=== PATIENT | female | born 1945 | race Caucasian/White ===

== ENCOUNTER → 2016-04-15 | Outpatient (CLI) | payer MEDICARE, BC ==
[~2016-04-15] MED LIST: ADVAIR 100/28 DISKU1 IH; ADVAIR 250/28 DISKUS IH; ADVAIR DISKUS 21 DSK IH; ALBUTEROL2.5 MG/3 M IH; AMITRIPTYLINE H25 M1 PO; AMITRIPTYLINE H25 M2 PO; ASCORBIC ACID500 M3 PO; ASPIRIN E.C. 8181 M1 PO; ATROVENT HFA IH; ATROVENT I0.2 MG/1 M IH; B COMPLETE1 EACH PO; B COMPLEX1 TA2 PO; CELEXA20 MG PO; CETIRIZINE HCL10 MG PO; CHILDREN'S ASPI81 M1 PO; CIPRO250 M1 PO; CITALOPRAM20 MG PO; CLARITIN 1010 MG/TAB PO; CYCLOBENZ5 MG PO; CYCLOBENZAPRINE10 M1 PO; DURAGESIC25 MCG/PAT TD; ERYTHROMYCIN5 MG/GM OU; FENTANYL12.5 MCG/H TD; FLEXERIL10 MG PO; FLOMAX0.4 MG PO; LEVOTHYROXIN0.075 MG PO; LISINOPRIL10 MG PO; MACRODANTIN100 M1 PO; MIRALAX 17GM PK1 PKT PO; MUCINEX 60600 MG/TA1 PO; MULTIPLE VITAMI1 CAP PO; NATURE'S BLEND400 I1 PO; NORCO 325 MG-51 TAB PO; OMEGA-3 FISH1200 MG PO; PATADAY 2.5 ML2.5 ML OU; PATANOL OPHTHALM5 ML OD; PREDNISONE10 MG PO; PRILOSEC 20MG20 MG PO; Patient's Own Medication PO; SENORMIN50 MG PO; SIMVASTATIN20 MG PO; TESSALON P100 MG/CAP PO; TESSALON PERLE100 M1 PO; TESSALON PERLE100 MG PO; TESSALON PERLE200 MG PO; VITAMIN E 400 U4001 PO; VITAMIN E100 UNI2; VOLTAREN1% TP; XOPENEX 1.1.25 MG/3 IH; ZESTRIL 5MG5 MG PO; ZOCOR20 MG PO; ZOFRAN4 M2 PO; [UNRECOGNIZED DRUG - OTHER] PO
== END ==
LOC: RAD 09:08
DX: Z13.820 Encounter for screening for osteoporosis (principal); M85.832 Other specified disorders of bone density and structure, left forearm

== ENCOUNTER → 2016-06-24 | Outpatient (CLI) | payer MEDICARE, BC ==
[2016-06-24 12:15] VITALS: BP 131/71
== END ==
LOC: AMSURD 12:00
DX: R00.1 Bradycardia, unspecified (principal)

== ENCOUNTER → 2016-07-06 | Outpatient (CLI) | payer MEDICARE, BC ==
[2016-06-24 12:15] VITALS: BP 131/71
== END ==
LOC: LAB 11:56
DX: R30.0 Dysuria (principal)

== ENCOUNTER → 2016-07-15 | Outpatient (CLI) | payer MEDICARE, BC ==
[2016-07-15 11:08] VITALS: BP 136/78
== END ==
LOC: AMSURD 10:34
DX: R00.1 Bradycardia, unspecified (principal); R53.83 Other fatigue

== ENCOUNTER → 2016-10-28 | Outpatient (CLI) | payer MEDICARE, BC ==
[2016-07-15 11:08] VITALS: BP 136/78
== END ==
LOC: RAD 12:00
DX: R00.2 Palpitations (principal)

== ENCOUNTER → 2017-02-23 | Outpatient (CLI) | payer MEDICARE, BC ==
[2016-07-15 11:08] VITALS: BP 136/78
[2017-02-23 10:09] LABS: ALBUMIN 4.2 g/dL (3.5-5.0); BUN/CREATININE RATIO 22.4 (6.0-26.0); CALCIUM 9.6 mg/dL (8.4-10.2); POTASSIUM 4.1 mmol/L (3.6-5.0); TOTAL BILIRUBIN 0.8 mg/dL (0.2-1.3); TOTAL PROTEIN 7.1 g/dL (6.3-8.2)
== END ==
LOC: LAB 09:19
PROVIDERS: Family Medicine
DX: I10 Essential (primary) hypertension (principal); E78.2 Mixed hyperlipidemia; M62.838 Other muscle spasm; E03.8 Other specified hypothyroidism; R20.2 Paresthesia of skin

== ENCOUNTER → 2017-05-04 | Outpatient (CLI) | payer MEDICARE, BC ==
[2016-07-15 11:08] VITALS: BP 136/78
== END ==
LOC: LAB 09:14 → RAD 09:14
DX: K59.01 Slow transit constipation (principal); E03.8 Other specified hypothyroidism

== ENCOUNTER → 2018-04-04 | Outpatient (CLI) | payer MEDICARE, BC ==
[2016-07-15 11:08] VITALS: BP 136/78
[2018-04-04 10:55] LABS: CALCIUM 9.5 mg/dL (8.4-10.2); POTASSIUM 3.9 mmol/L (3.6-5.0)
== END ==
LOC: LAB 10:33
PROVIDERS: Nurse Practitioner
DX: R53.83 Other fatigue (principal)

== ENCOUNTER → 2018-08-10 | Outpatient (CLI) | payer MEDICARE, BC ==
[2016-07-15 11:08] VITALS: BP 136/78
[2018-08-10 11:22] LABS: ALBUMIN 4.4 g/dL (3.4-4.8); CALCIUM 10.6 mg/dL (8.4-10.2); POTASSIUM 3.9 mmol/L (3.5-5.1); TOTAL BILIRUBIN 0.5 mg/dL (0.2-1.2); TOTAL PROTEIN 7.3 g/dL (6.2-8.1)
== END ==
LOC: LAB 10:45
PROVIDERS: Family Medicine
DX: E78.2 Mixed hyperlipidemia (principal); I10 Essential (primary) hypertension

== ENCOUNTER → 2018-08-23 | Outpatient (CLI) | payer MEDICARE, BC ==
[2016-07-15 11:08] VITALS: BP 136/78
== END ==
LOC: LAB 15:50
DX: N39.0 Urinary tract infection, site not specified (principal)

== ENCOUNTER → 2018-09-27 | Outpatient (CLI) | payer MEDICARE, BC ==
[2016-07-15 11:08] VITALS: BP 136/78
[2018-09-27 16:22] LABS: PH-URINE 6.5 (5.0 - 8.0); URINE APPEARANCE HAZY; URINE COLOR YELLOW; URINE GLUCOSE NEGATIVE (NEGATIVE); URINE KETONE 2+ (NEGATIVE); URINE PROTEIN(semi-quant) TRACE mg/dL (NEGATIVE)
[2018-09-27 16:23] LABS: URINE BILIRUBIN NEGATIVE (NEGATIVE); URINE BLOOD NEGATIVE (NEGATIVE); URINE LEUKOCYTE ESTERASE 1+ (NEGATIVE); URINE MUCUS PRESENT (NOT PRESENT); URINE NITRATE NEGATIVE (NEGATIVE); URINE UROBILINOGEN NORMAL (NORMAL)
== END ==
LOC: LAB 15:18
PROVIDERS: Family Medicine
DX: N39.0 Urinary tract infection, site not specified (principal); E03.8 Other specified hypothyroidism

== ENCOUNTER 2018-12-28 10:00 | Outpatient (RCR) | payer MEDICARE, BC ==
[2016-07-15 11:08] VITALS: BP 136/78
== END 2018-12-28 10:30 | disposition home or self-care (01) ==
LOC: PT 10:00
DX: M54.9 Dorsalgia, unspecified (principal)

== ENCOUNTER → 2019-01-09 | Outpatient (CLI) | payer MEDICARE, BC ==
[2016-07-15 11:08] VITALS: BP 136/78
== END ==
LOC: LAB 09:58
DX: N30.01 Acute cystitis with hematuria (principal)

== ENCOUNTER → 2019-02-02 | Outpatient (CLI) | payer MEDICARE, BC ==
[2016-07-15 11:08] VITALS: BP 136/78
[2019-02-02 12:24] LABS: ALBUMIN 4.3 g/dL (3.4-4.8)
[2019-02-02 12:26] LABS: TOTAL PROTEIN 7.2 g/dL (6.2-8.1)
[2019-02-02 12:28] LABS: TOTAL BILIRUBIN 0.6 mg/dL (0.2-1.2)
[2019-02-02 12:32] LABS: DIRECT BILIRUBIN 0.2 mg/dL (0.0-0.5)
== END ==
LOC: LAB 11:39
PROVIDERS: Family Medicine
DX: E78.2 Mixed hyperlipidemia (principal)

== ENCOUNTER 2019-03-14 02:50 | Emergency (ER) | payer MEDICARE, BC ==
[~2019-03-14] VITALS: Ht 167.6 cm; Wt 108.6 kg
[2019-03-14] MEDS ORDERED: ATENOLOL25 MG PO (03:11)
[2019-03-14] MEDS ORDERED: MYCELEX10 MG/TAB PO (03:12)
[2019-03-14] MEDS ORDERED: ZOCOR40 M1 PO (03:13)
[2019-03-14] MEDS ORDERED: MOBIC15 M1 PO (03:14)
[2019-03-14] MEDS ORDERED: LEVOTHYROXINE125 MCG PO (03:15)
[2019-03-14 03:44] LABS: HEMATOCRIT 46.5 % (37.0-47.0); HEMOGLOBIN 14.9 g/dL (12.5-16.0); MEAN CELL VOLUME 100 fl (78-100); MEAN CORPUSCULAR HEMOGLOBIN 32 pg (27-31); MEAN CORPUSCULAR HGB CONC 32 g/dL (33-37); MEAN PLATELET VOLUME 9.8 fl (7.4-10.4); PLATELET COUNT 253 K/mm3 (130-400); RED BLOOD COUNT 4.65 M/mm3 (4.10-5.30); RED CELL DISTRIBUTION WIDTH 13.2 % (11.5-14.5); WHITE BLOOD COUNT 9.2 K/mm3 (4.8-10.8)
[2019-03-14 03:50] LABS: ALBUMIN 4.4 g/dL (3.4-4.8); SODIUM 142 mmol/L (136-145)
[2019-03-14 03:51] LABS: CALCIUM 9.4 mg/dL (8.3-10.5)
[2019-03-14 03:52] LABS: BAND 2 % (0-10); LYMPHOCYTE 3 % (20-51); MONOCYTE 3 % (3-10); NEUTROPHILS 92 % (42-75)
[2019-03-14 03:53] LABS: GLUCOSE 112 mg/dL (65-105); TOTAL PROTEIN 7.4 g/dL (6.2-8.1)
[2019-03-14 03:54] LABS: CARBON DIOXIDE 24 mmol/L (23-31); TOTAL BILIRUBIN 0.6 mg/dL (0.2-1.2)
[2019-03-14 03:58] LABS: AST-SGOT 21 U/L (5-34)
[2019-03-14 03:59] LABS: ALT/SGPT 16 U/L (0-55)
[2019-03-14 04:05] LABS: TROPONIN-I < 0.03 ng/mL (<0.030)
[2019-03-14 04:57] VITALS: BP 145/82
== END 2019-03-14 04:57 | disposition home or self-care (01) ==
LOC: ED 02:50
PROVIDERS: Nurse Practitioner Family
DX: K52.9 Noninfective gastroenteritis and colitis, unspecified (principal); I10 Essential (primary) hypertension
CPT/HCPCS: J1885; J2405; J7040

== ENCOUNTER → 2019-03-15 | Outpatient (CLI) | payer MEDICARE, BC ==
[2019-03-14 04:57] VITALS: BP 145/82
[~2019-03-15] MED LIST changes: +ATENOLOL25 MG PO; +LEVOTHYROXINE125 MCG PO; +MOBIC15 M1 PO; +MYCELEX10 MG/TAB PO; +ZOCOR40 M1 PO
[2019-03-15 16:37] LABS: URINE COLOR YELLOW
[2019-03-15 16:38] LABS: URINE APPEARANCE CLOUDY; URINE BILIRUBIN NEGATIVE (NEGATIVE); URINE BLOOD 50 ery/uL (NEGATIVE); URINE GLUCOSE NEGATIVE (NEGATIVE); URINE KETONE NEGATIVE (NEGATIVE); URINE LEUKOCYTE ESTERASE 2+ (NEGATIVE); URINE NITRATE POSITIVE (NEGATIVE); URINE PROTEIN(semi-quant) TRACE mg/dL (NEGATIVE); URINE UROBILINOGEN NORMAL (NORMAL); URINE WBC >50 /hpf (0-3)
== END ==
LOC: LAB 15:32
PROVIDERS: Family Medicine
DX: Z01.89 Encounter for other specified special examinations (principal)

== ENCOUNTER → 2019-03-26 | Outpatient (CLI) | payer MEDICARE, BC ==
[2019-03-14 04:57] VITALS: BP 145/82
[2019-03-26 09:07] LABS: EOS # 0.2 (0.04-0.40); EOS % 2.3 % (1.0-5.0); HEMATOCRIT 42.4 % (37.0-47.0); HEMOGLOBIN 13.5 g/dL (12.5-16.0); MEAN CELL VOLUME 100 fl (78-100); MEAN CORPUSCULAR HEMOGLOBIN 32 pg (27-31); MEAN CORPUSCULAR HGB CONC 32 g/dL (33-37); MONO # 0.7 (0.20-0.80); NEU # 4.7 (1.40-6.50); PLATELET COUNT 294 K/mm3 (130-400); RED BLOOD COUNT 4.25 M/mm3 (4.10-5.30); RED CELL DISTRIBUTION WIDTH 12.6 % (11.5-14.5); WHITE BLOOD COUNT 7.7 K/mm3 (4.8-10.8)
[2019-03-26 09:21] LABS: URINE APPEARANCE CLEAR; URINE BILIRUBIN NEGATIVE (NEGATIVE); URINE BLOOD NEGATIVE (NEGATIVE); URINE COLOR YELLOW; URINE GLUCOSE NEGATIVE (NEGATIVE); URINE KETONE NEGATIVE (NEGATIVE); URINE LEUKOCYTE ESTERASE TRACE (NEGATIVE); URINE NITRATE NEGATIVE (NEGATIVE); URINE PROTEIN(semi-quant) NEGATIVE (NEGATIVE); URINE UROBILINOGEN NORMAL (NORMAL)
[2019-03-29 12:56] LABS: ANA SCREEN with REFLEX Negative (Negative)
== END ==
LOC: LAB 08:43
PROVIDERS: Family Medicine
DX: K13.79 Other lesions of oral mucosa (principal); N30.01 Acute cystitis with hematuria; L43.9 Lichen planus, unspecified

== ENCOUNTER → 2019-04-04 | Outpatient (CLI) | payer MEDICARE, BC ==
[2019-03-14 04:57] VITALS: BP 145/82
[2019-04-04 15:31] LABS: URINE APPEARANCE CLOUDY; URINE COLOR YELLOW; URINE PROTEIN(semi-quant) 1+ mg/dL (NEGATIVE)
[2019-04-04 15:32] LABS: URINE BILIRUBIN NEGATIVE (NEGATIVE); URINE BLOOD 50 ery/uL (NEGATIVE); URINE GLUCOSE NEGATIVE (NEGATIVE); URINE KETONE NEGATIVE (NEGATIVE); URINE LEUKOCYTE ESTERASE 2+ (NEGATIVE); URINE NITRATE NEGATIVE (NEGATIVE); URINE UROBILINOGEN NORMAL (NORMAL)
== END ==
LOC: LAB 15:13
PROVIDERS: Family Medicine
DX: R39.15 Urgency of urination (principal); R30.0 Dysuria; R82.90 Unspecified abnormal findings in urine

== ENCOUNTER → 2019-09-13 | Outpatient (CLI) | payer MEDICARE, BC | LOC: LAB 10:32 | DX: N39.0 Urinary tract infection, site not specified (principal) ==

== ENCOUNTER 2019-11-08 12:11 | Emergency (ER) | payer MEDICARE, BC ==
[~2019-11-08] VITALS: Ht 167.6 cm; Wt 119.5 kg
[2019-11-08 13:15] LABS: EOS # 0.1 (0.04-0.40); EOS % 2.1 % (1.0-5.0); HEMATOCRIT 42.5 % (37.0-47.0); HEMOGLOBIN 13.6 g/dL (12.5-16.0); LYMPH# 1.3 (1.50-4.00); MEAN CELL VOLUME 99 fl (78-100); MEAN CORPUSCULAR HEMOGLOBIN 32 pg (27-31); MEAN CORPUSCULAR HGB CONC 32 g/dL (33-37); MEAN PLATELET VOLUME 9.8 fl (7.4-10.4); MONO # 0.5 (0.20-0.80); NEU # 3.3 (1.40-6.50); PLATELET COUNT 224 K/mm3 (130-400); RED BLOOD COUNT 4.31 M/mm3 (4.10-5.30); RED CELL DISTRIBUTION WIDTH 11.9 % (11.5-14.5); WHITE BLOOD COUNT 5.2 K/mm3 (4.8-10.8)
[2019-11-08 13:36] LABS: ALBUMIN 4.2 g/dL (3.4-4.8)
[2019-11-08 13:37] LABS: CALCIUM 9.7 mg/dL (8.3-10.5)
[2019-11-08 13:40] LABS: TOTAL BILIRUBIN 0.6 mg/dL (0.2-1.2)
[2019-11-08] MEDS ORDERED: MACRODANTIN50 MG/CA1 PO (15:08)
[2019-11-08] MEDS ORDERED: AMITRIPTYLINE H25 M2 PO (15:10)
[2019-11-08] MEDS ORDERED: ATROVENT I0.2 MG/1 M IH (15:12)
[2019-11-08] MEDS ORDERED: CRANBERRY 100 M1 SGL PO (15:14)
[2019-11-08] MEDS ORDERED: CALCIUM 500-VI1 EAC1 PO (15:15)
[2019-11-08] MEDS ORDERED: TOPROL XL 50MG50 MG PO (15:35)
[2019-11-08] MEDS ORDERED: BACLOFEN5 MG PO (15:38)
[2019-11-08 16:04] VITALS: BP 168/99
== END 2019-11-08 16:04 | disposition home or self-care (01) ==
LOC: ED 12:11
PROVIDERS: Nurse Practitioner Family
DX: G44.209 Tension-type headache, unspecified, not intractable (principal); I10 Essential (primary) hypertension
CPT/HCPCS: J1885

== ENCOUNTER → 2019-11-10 | Outpatient (CLI) | payer MEDICARE, BC ==
[2019-11-08 16:04] VITALS: BP 168/99
[~2019-11-10] MED LIST changes: +BACLOFEN5 MG PO; +CALCIUM 500-VI1 EAC1 PO; +CRANBERRY 100 M1 SGL PO; +MACRODANTIN50 MG/CA1 PO; +TOPROL XL 50MG50 MG PO
[2019-11-10 14:38] LABS: PH-URINE 5.5 (5.0 - 8.0); URINE APPEARANCE CLOUDY; URINE BILIRUBIN NEGATIVE (NEGATIVE); URINE BLOOD 250 ery/uL (NEGATIVE); URINE COLOR YELLOW; URINE GLUCOSE NEGATIVE (NEGATIVE); URINE KETONE NEGATIVE (NEGATIVE); URINE LEUKOCYTE ESTERASE 2+ (NEGATIVE); URINE NITRATE NEGATIVE (NEGATIVE); URINE PROTEIN(semi-quant) 1+ mg/dL (NEGATIVE); URINE UROBILINOGEN NORMAL (NORMAL); URINE WBC >50 /hpf (0-3)
== END ==
LOC: LAB 14:11
PROVIDERS: Nurse Practitioner
DX: R30.0 Dysuria (principal)

== ENCOUNTER → 2019-12-03 | Outpatient (CLI) | payer MEDICARE, BC ==
[2019-11-08 16:04] VITALS: BP 168/99
== END ==
LOC: RAD 15:07
DX: S22.060A Wedge compression fracture of T7-T8 vertebra, initial encounter for closed fracture (principal); M47.814 Spondylosis without myelopathy or radiculopathy, thoracic region

== ENCOUNTER → 2019-12-25 | Outpatient (CLI) | payer MEDICARE, BC ==
[2019-12-25 10:35] LABS: URINE APPEARANCE CLOUDY; URINE BILIRUBIN NEGATIVE (NEGATIVE); URINE BLOOD 50 ery/uL (NEGATIVE); URINE COLOR YELLOW; URINE GLUCOSE NEGATIVE (NEGATIVE); URINE KETONE NEGATIVE (NEGATIVE); URINE LEUKOCYTE ESTERASE 2+ (NEGATIVE); URINE NITRATE POSITIVE (NEGATIVE); URINE PROTEIN(semi-quant) TRACE mg/dL (NEGATIVE); URINE UROBILINOGEN NORMAL (NORMAL); URINE WBC >50 /hpf (0-3)
== END ==
LOC: LAB 09:33
DX: R82.998 Other abnormal findings in urine (principal)

== ENCOUNTER → 2020-01-03 | Outpatient (CLI) | payer MEDICARE, BC ==
[2020-01-03 11:56] LABS: URINE APPEARANCE HAZY; URINE BILIRUBIN NEGATIVE (NEGATIVE); URINE BLOOD TRACE (NEGATIVE); URINE COLOR YELLOW; URINE GLUCOSE NEGATIVE (NEGATIVE); URINE KETONE NEGATIVE (NEGATIVE); URINE LEUKOCYTE ESTERASE 1+ (NEGATIVE); URINE NITRATE NEGATIVE (NEGATIVE); URINE PROTEIN(semi-quant) TRACE mg/dL (NEGATIVE); URINE UROBILINOGEN NORMAL (NORMAL)
== END ==
LOC: LAB 10:22
PROVIDERS: Family Medicine
DX: N30.90 Cystitis, unspecified without hematuria (principal); R82.71 Bacteriuria

== ENCOUNTER → 2020-01-18 | Outpatient (CLI) | payer MEDICARE, BC ==
[~2020-01-18] VITALS: Ht 167.6 cm; Wt 110.5 kg
[~2020-01-18] MED LIST changes: +B COMPLEX1 EACH PO; +LUTEIN10 MG PO; -NATURE'S BLEND400 I1 PO; +VITAMIN D350 MCG PO
[2020-01-18 10:48] LABS: EOS # 0.2 (0.04-0.40); EOS % 2.1 % (1.0-5.0); HEMATOCRIT 43.8 % (37.0-47.0); HEMOGLOBIN 13.9 g/dL (12.5-16.0); MEAN CELL VOLUME 100 fl (78-100); MEAN CORPUSCULAR HEMOGLOBIN 32 pg (27-31); MEAN CORPUSCULAR HGB CONC 32 g/dL (33-37); MEAN PLATELET VOLUME 10.1 fl (7.4-10.4); MONO # 0.6 (0.20-0.80); NEU # 4.9 (1.40-6.50); PLATELET COUNT 259 K/mm3 (130-400); RED BLOOD COUNT 4.38 M/mm3 (4.10-5.30); RED CELL DISTRIBUTION WIDTH 12.8 % (11.5-14.5); WHITE BLOOD COUNT 7.8 K/mm3 (4.8-10.8)
[2020-01-18 10:55] LABS: ALBUMIN 4.4 g/dL (3.4-4.8); POTASSIUM 3.4 mmol/L (3.5-5.1)
[2020-01-18 10:56] LABS: CALCIUM 9.4 mg/dL (8.3-10.5)
[2020-01-18 10:57] LABS: TOTAL PROTEIN 7.7 g/dL (6.2-8.1)
[2020-01-18 10:59] LABS: TOTAL BILIRUBIN 0.6 mg/dL (0.2-1.2)
[2020-01-18 11:10] VITALS: BP 147/91
[2020-01-18 11:11] VITALS: BP 147/91
[2020-01-18 12:21] VITALS: BP 163/88
[2020-01-18 12:31] LABS: URINE APPEARANCE HAZY; URINE BILIRUBIN NEGATIVE (NEGATIVE); URINE COLOR YELLOW; URINE GLUCOSE NEGATIVE (NEGATIVE); URINE KETONE NEGATIVE (NEGATIVE); URINE PROTEIN(semi-quant) 2+ mg/dL (NEGATIVE); URINE UROBILINOGEN NORMAL (NORMAL)
[2020-01-18 12:32] LABS: URINE BLOOD TRACE (NEGATIVE); URINE LEUKOCYTE ESTERASE 2+ (NEGATIVE); URINE MUCUS PRESENT (NOT PRESENT); URINE NITRATE POSITIVE (NEGATIVE); URINE WBC >50 /hpf (0-3)
== END ==
LOC: AMSURD 10:10 → RAD 10:10
PROVIDERS: Family Medicine
DX: K58.9 Irritable bowel syndrome, unspecified (principal)
CPT/HCPCS: J7030

== ENCOUNTER → 2020-04-28 | Outpatient (CLI) | payer MEDICARE, BC ==
[2020-01-18 12:21] VITALS: BP 163/88
[2020-04-28 10:09] LABS: EOS # 0.2 (0.04-0.40); EOS % 2.9 % (1.0-5.0); HEMATOCRIT 44.5 % (37.0-47.0); HEMOGLOBIN 14.1 g/dL (12.5-16.0); LYMPH# 1.8 (1.50-4.00); MEAN CELL VOLUME 101 fl (78-100); MEAN CORPUSCULAR HEMOGLOBIN 32 pg (27-31); MEAN CORPUSCULAR HGB CONC 32 g/dL (33-37); MEAN PLATELET VOLUME 9.7 fl (7.4-10.4); MONO # 0.6 (0.20-0.80); PLATELET COUNT 259 K/mm3 (130-400); RED BLOOD COUNT 4.39 M/mm3 (4.10-5.30); RED CELL DISTRIBUTION WIDTH 12.8 % (11.5-14.5); WHITE BLOOD COUNT 6.7 K/mm3 (4.8-10.8)
[2020-04-28 10:17] LABS: ALBUMIN 4.3 g/dL (3.4-4.8); POTASSIUM 3.7 mmol/L (3.5-5.1); SODIUM 142 mmol/L (136-145)
[2020-04-28 10:19] LABS: CALCIUM 9.4 mg/dL (8.3-10.5)
[2020-04-28 10:20] LABS: GLUCOSE 99 mg/dL (65-105); TOTAL PROTEIN 7.1 g/dL (6.2-8.1)
[2020-04-28 10:21] LABS: CARBON DIOXIDE 27 mmol/L (23-31)
[2020-04-28 10:22] LABS: TOTAL BILIRUBIN 0.5 mg/dL (0.2-1.2)
[2020-04-28 10:25] LABS: AST-SGOT 27 U/L (5-34)
[2020-04-28 10:26] LABS: ALT/SGPT 24 U/L (0-55)
[2020-04-28 10:33] LABS: URINE APPEARANCE CLOUDY; URINE COLOR YELLOW
[2020-04-28 10:34] LABS: URINE BILIRUBIN NEGATIVE (NEGATIVE); URINE BLOOD TRACE (NEGATIVE); URINE GLUCOSE NEGATIVE (NEGATIVE); URINE KETONE NEGATIVE (NEGATIVE); URINE LEUKOCYTE ESTERASE 2+ (NEGATIVE); URINE NITRATE NEGATIVE (NEGATIVE); URINE PROTEIN(semi-quant) TRACE mg/dL (NEGATIVE); URINE UROBILINOGEN NORMAL (NORMAL); URINE WBC >50 /hpf (0-3)
[2020-04-28 11:13] LABS: ERYTHROCYTE SEDIMENTATION RATE 8 mm/hr (0-30)
== END ==
LOC: LAB 09:43
DX: M25.50 Pain in unspecified joint (principal); R76.8 Other specified abnormal immunological findings in serum

== ENCOUNTER → 2020-05-26 | Outpatient (CLI) | payer MEDICARE, BC ==
[2020-01-18 12:21] VITALS: BP 163/88
[2020-05-26 13:24] LABS: URINE APPEARANCE CLOUDY; URINE COLOR YELLOW
[2020-05-26 13:25] LABS: PH-URINE 6.5 (5.0 - 8.0); URINE BILIRUBIN NEGATIVE (NEGATIVE); URINE BLOOD NEGATIVE (NEGATIVE); URINE GLUCOSE NEGATIVE (NEGATIVE); URINE KETONE NEGATIVE (NEGATIVE); URINE LEUKOCYTE ESTERASE 2+ (NEGATIVE); URINE NITRATE NEGATIVE (NEGATIVE); URINE PROTEIN(semi-quant) TRACE mg/dL (NEGATIVE); URINE UROBILINOGEN NORMAL (NORMAL); URINE WBC 31-50 /hpf (0-3)
== END ==
LOC: LAB 10:29
DX: N39.0 Urinary tract infection, site not specified (principal)

== ENCOUNTER → 2020-07-30 | Outpatient (CLI) | payer MEDICARE, BC ==
[2020-01-18 12:21] VITALS: BP 163/88
== END ==
LOC: LAB 09:34
DX: E78.2 Mixed hyperlipidemia (principal); E55.9 Vitamin D deficiency, unspecified

== ENCOUNTER → 2020-09-25 | Outpatient (CLI) | payer MEDICARE, BC ==
[2020-09-25 10:14] LABS: BASO # 0.04 (0.02-0.10); EOS # 0.11 (0.04-0.40); EOS % 1.7 % (1.0-5.0); HEMATOCRIT 40.7 % (37.0-47.0); HEMOGLOBIN 13.1 g/dL (12.5-16.0); LYMPH# 1.52 (1.50-4.00); MEAN CELL VOLUME 103 fl (78-100); MEAN CORPUSCULAR HEMOGLOBIN 33 pg (27-31); MEAN CORPUSCULAR HGB CONC 32 g/dL (33-37); MEAN PLATELET VOLUME 9.7 fl (7.4-10.4); MONO # 0.64 (0.20-0.80); NEU # 4.05 (1.40-6.50); PLATELET COUNT 257 K/mm3 (130-400); RED BLOOD COUNT 3.97 M/mm3 (4.10-5.30); WHITE BLOOD COUNT 6.4 K/mm3 (4.8-10.8)
[2020-09-25 10:20] LABS: ALBUMIN 4.2 g/dL (3.4-4.8)
[2020-09-25 10:21] LABS: POTASSIUM 4.3 mmol/L (3.5-5.1)
[2020-09-25 10:22] LABS: CALCIUM 9.6 mg/dL (8.3-10.5)
[2020-09-25 10:23] LABS: TOTAL PROTEIN 7.1 g/dL (6.2-8.1)
[2020-09-25 10:25] LABS: TOTAL BILIRUBIN 0.6 mg/dL (0.2-1.2)
== END ==
LOC: LAB 10:00
DX: Z79.899 Other long term (current) drug therapy (principal)

== ENCOUNTER → 2020-10-27 | Outpatient (CLI) | payer MEDICARE, BC ==
[2020-10-27 09:44] LABS: BASO # 0.04 (0.02-0.10); EOS # 0.15 (0.04-0.40); EOS % 1.5 % (1.0-5.0); HEMOGLOBIN 12.6 g/dL (12.5-16.0); LYMPH# 1.78 (1.50-4.00); MEAN CELL VOLUME 104 fl (78-100); MEAN CORPUSCULAR HEMOGLOBIN 33 pg (27-31); MEAN CORPUSCULAR HGB CONC 32 g/dL (33-37); MEAN PLATELET VOLUME 9.7 fl (7.4-10.4); MONO # 0.74 (0.20-0.80); NEU # 6.97 (1.40-6.50); PLATELET COUNT 233 K/mm3 (130-400); RED BLOOD COUNT 3.83 M/mm3 (4.10-5.30); WHITE BLOOD COUNT 9.7 K/mm3 (4.8-10.8)
[2020-10-27 09:54] LABS: ALBUMIN 3.9 g/dL (3.4-4.8); POTASSIUM 3.7 mmol/L (3.5-5.1)
[2020-10-27 09:57] LABS: TOTAL PROTEIN 6.3 g/dL (6.2-8.1)
[2020-10-27 09:58] LABS: TOTAL BILIRUBIN 0.4 mg/dL (0.2-1.2)
== END ==
LOC: LAB 09:29
DX: Z79.899 Other long term (current) drug therapy (principal)

== ENCOUNTER → 2020-10-30 | Outpatient (CLI) | payer MEDICARE, BC ==
[2020-10-30 10:32] LABS: URINE APPEARANCE CLOUDY; URINE BILIRUBIN NEGATIVE (NEGATIVE); URINE BLOOD 50 ery/uL (NEGATIVE); URINE COLOR YELLOW; URINE GLUCOSE NEGATIVE (NEGATIVE); URINE KETONE NEGATIVE (NEGATIVE); URINE LEUKOCYTE ESTERASE 2+ (NEGATIVE); URINE NITRATE POSITIVE (NEGATIVE); URINE PROTEIN(semi-quant) 1+ mg/dL (NEGATIVE); URINE UROBILINOGEN NORMAL (NORMAL); URINE WBC >50 /hpf (0-3)
[2020-10-30 23:23] LABS: FOLATE (FOLIC ACID) 16.3 ng/mL (2.0-20.0)
== END ==
LOC: LAB 10:07
PROVIDERS: Family Medicine
DX: D72.829 Elevated white blood cell count, unspecified (principal); E55.9 Vitamin D deficiency, unspecified; N39.0 Urinary tract infection, site not specified; D75.89 Other specified diseases of blood and blood-forming organs

== ENCOUNTER → 2020-11-19 | Outpatient (CLI) | payer MEDICARE, BC | LOC: LAB 08:47 | DX: N39.0 Urinary tract infection, site not specified (principal); E55.9 Vitamin D deficiency, unspecified ==

== ENCOUNTER → 2020-12-01 | Outpatient (CLI) | payer MEDICARE, BC ==
[2020-12-01 11:29] LABS: ALBUMIN 3.9 g/dL (3.4-4.8); POTASSIUM 3.5 mmol/L (3.5-5.1)
[2020-12-01 11:30] LABS: CALCIUM 10.2 mg/dL (8.3-10.5)
[2020-12-01 11:31] LABS: BASO # 0.02 (0.02-0.10); EOS # 0.18 (0.04-0.40); EOS % 2.8 % (1.0-5.0); HEMATOCRIT 39.2 % (37.0-47.0); HEMOGLOBIN 13.2 g/dL (12.5-16.0); LYMPH# 1.38 (1.50-4.00); MEAN CELL VOLUME 89 fl (78-100); MEAN CORPUSCULAR HEMOGLOBIN 30 pg (27-31); MEAN CORPUSCULAR HGB CONC 34 g/dL (33-37); MEAN PLATELET VOLUME 9.2 fl (7.4-10.4); MONO # 0.88 (0.20-0.80); NEU # 4.01 (1.40-6.50); PLATELET COUNT 220 K/mm3 (130-400); RED BLOOD COUNT 4.42 M/mm3 (4.10-5.30); RED CELL DISTRIBUTION WIDTH 12.3 % (11.5-14.5); WHITE BLOOD COUNT 6.5 K/mm3 (4.8-10.8)
[2020-12-01 11:32] LABS: TOTAL PROTEIN 6.5 g/dL (6.2-8.1)
[2020-12-01 11:33] LABS: TOTAL BILIRUBIN 0.5 mg/dL (0.2-1.2)
== END ==
LOC: LAB 10:09
DX: Z79.899 Other long term (current) drug therapy (principal)

== ENCOUNTER → 2020-12-26 | Outpatient (CLI) | payer MEDICARE, BC ==
[2020-12-26 09:27] LABS: BASO # 0.05 K/mm3 (0.02-0.10); EOS # 0.27 K/mm3 (0.04-0.40); EOS % 4.8 % (1.0-5.0); HEMOGLOBIN 13.3 g/dL (12.5-16.0); LYMPH# 1.27 K/mm3 (1.50-4.00); MEAN CELL VOLUME 102 fl (78-100); MEAN CORPUSCULAR HEMOGLOBIN 33 pg (27-31); MEAN CORPUSCULAR HGB CONC 32 g/dL (33-37); MEAN PLATELET VOLUME 9.2 fl (7.4-10.4); MONO # 0.53 K/mm3 (0.20-0.80); NEU # 3.56 K/mm3 (1.40-6.50); PLATELET COUNT 247 K/mm3 (130-400); RED BLOOD COUNT 4.01 M/mm3 (4.10-5.30); RED CELL DISTRIBUTION WIDTH 12.7 % (11.5-14.5); WHITE BLOOD COUNT 5.7 K/mm3 (4.8-10.8)
[2020-12-26 09:39] LABS: ALBUMIN 4.1 g/dL (3.4-4.8); POTASSIUM 4.1 mmol/L (3.5-5.1)
[2020-12-26 09:40] LABS: CALCIUM 10.3 mg/dL (8.3-10.5)
[2020-12-26 09:42] LABS: TOTAL PROTEIN 6.8 g/dL (6.2-8.1)
[2020-12-26 09:43] LABS: TOTAL BILIRUBIN 0.4 mg/dL (0.2-1.2)
[2020-12-26 10:02] LABS: URINE APPEARANCE CLOUDY; URINE BILIRUBIN NEGATIVE (NEGATIVE); URINE BLOOD 250 ery/uL (NEGATIVE); URINE COLOR YELLOW; URINE GLUCOSE NEGATIVE (NEGATIVE); URINE KETONE NEGATIVE (NEGATIVE); URINE LEUKOCYTE ESTERASE 2+ (NEGATIVE); URINE NITRATE NEGATIVE (NEGATIVE); URINE PROTEIN(semi-quant) 2+ mg/dL (NEGATIVE); URINE UROBILINOGEN NORMAL (NORMAL); URINE WBC >50 /hpf (0-3)
== END ==
LOC: LAB 09:08
PROVIDERS: Family Medicine
DX: N39.0 Urinary tract infection, site not specified (principal); Z79.899 Other long term (current) drug therapy

== ENCOUNTER → 2021-01-06 | Outpatient (CLI) | payer MEDICARE, BC ==
[2021-01-06 11:23] LABS: PH-URINE 5.5 (5.0 - 8.0); URINE APPEARANCE CLOUDY; URINE COLOR YELLOW; URINE PROTEIN(semi-quant) 1+ mg/dL (NEGATIVE)
[2021-01-06 11:24] LABS: URINE BILIRUBIN NEGATIVE (NEGATIVE); URINE BLOOD 50 ery/uL (NEGATIVE); URINE GLUCOSE NEGATIVE (NEGATIVE); URINE KETONE NEGATIVE (NEGATIVE); URINE LEUKOCYTE ESTERASE 2+ (NEGATIVE); URINE NITRATE NEGATIVE (NEGATIVE); URINE UROBILINOGEN NORMAL (NORMAL); URINE WBC >50 /hpf (0-3)
== END ==
LOC: LAB 08:54
PROVIDERS: Family Medicine
DX: N39.0 Urinary tract infection, site not specified (principal)

== ENCOUNTER → 2021-01-26 | Outpatient (CLI) | payer MEDICARE, BC ==
[2021-01-26 12:50] LABS: BASO # 0.03 K/mm3 (0.02-0.10); EOS # 0.06 K/mm3 (0.04-0.40); EOS % 0.7 % (1.0-5.0); HEMATOCRIT 41.6 % (37.0-47.0); HEMOGLOBIN 13.3 g/dL (12.5-16.0); LYMPH# 1.03 K/mm3 (1.50-4.00); MEAN CELL VOLUME 103 fl (78-100); MEAN CORPUSCULAR HEMOGLOBIN 33 pg (27-31); MEAN CORPUSCULAR HGB CONC 32 g/dL (33-37); MEAN PLATELET VOLUME 9.1 fl (7.4-10.4); MONO # 0.57 K/mm3 (0.20-0.80); NEU # 6.73 K/mm3 (1.40-6.50); PLATELET COUNT 323 K/mm3 (130-400); RED BLOOD COUNT 4.04 M/mm3 (4.10-5.30); RED CELL DISTRIBUTION WIDTH 12.9 % (11.5-14.5); WHITE BLOOD COUNT 8.4 K/mm3 (4.8-10.8)
[2021-01-26 12:54] LABS: ALBUMIN 4.2 g/dL (3.4-4.8)
[2021-01-26 12:55] LABS: POTASSIUM 4.1 mmol/L (3.5-5.1)
[2021-01-26 12:57] LABS: TOTAL PROTEIN 7.2 g/dL (6.2-8.1)
[2021-01-26 12:59] LABS: TOTAL BILIRUBIN 0.5 mg/dL (0.2-1.2)
== END ==
LOC: LAB 12:33
DX: Z79.899 Other long term (current) drug therapy (principal)

== ENCOUNTER → 2021-02-26 | Outpatient (CLI) | payer MEDICARE, BC ==
[2021-02-26 09:39] LABS: BASO # 0.02 K/mm3 (0.02-0.10); EOS # 0.29 K/mm3 (0.04-0.40); EOS % 3.7 % (1.0-5.0); HEMATOCRIT 38.5 % (37.0-47.0); HEMOGLOBIN 12.4 g/dL (12.5-16.0); LYMPH# 0.73 K/mm3 (1.50-4.00); MEAN CELL VOLUME 107 fl (78-100); MEAN CORPUSCULAR HEMOGLOBIN 34 pg (27-31); MEAN CORPUSCULAR HGB CONC 32 g/dL (33-37); MEAN PLATELET VOLUME 9.2 fl (7.4-10.4); MONO # 0.37 K/mm3 (0.20-0.80); NEU # 6.36 K/mm3 (1.40-6.50); PLATELET COUNT 191 K/mm3 (130-400); RED CELL DISTRIBUTION WIDTH 14.5 % (11.5-14.5); WHITE BLOOD COUNT 7.8 K/mm3 (4.8-10.8)
[2021-02-26 09:48] LABS: ALBUMIN 4.3 g/dL (3.4-4.8)
[2021-02-26 09:49] LABS: POTASSIUM 3.9 mmol/L (3.5-5.1)
[2021-02-26 09:50] LABS: CALCIUM 9.8 mg/dL (8.3-10.5)
[2021-02-26 09:53] LABS: TOTAL BILIRUBIN 0.5 mg/dL (0.2-1.2)
== END ==
LOC: LAB 09:24
DX: Z79.899 Other long term (current) drug therapy (principal)

== ENCOUNTER → 2021-03-30 | Outpatient (CLI) | payer MEDICARE, BC ==
[2021-03-30 10:56] LABS: ALBUMIN 4.4 g/dL (3.4-4.8)
[2021-03-30 10:57] LABS: CALCIUM 10.2 mg/dL (8.3-10.5)
[2021-03-30 10:58] LABS: TOTAL PROTEIN 7.5 g/dL (6.2-8.1)
[2021-03-30 11:00] LABS: TOTAL BILIRUBIN 0.5 mg/dL (0.2-1.2)
[2021-03-30 11:35] LABS: URINE APPEARANCE CLOUDY; URINE COLOR YELLOW
[2021-03-30 11:36] LABS: URINE BILIRUBIN NEGATIVE (NEGATIVE); URINE BLOOD TRACE (NEGATIVE); URINE GLUCOSE NEGATIVE (NEGATIVE); URINE KETONE NEGATIVE (NEGATIVE); URINE LEUKOCYTE ESTERASE 1+ (NEGATIVE); URINE MUCUS PRESENT (NOT PRESENT); URINE NITRATE POSITIVE (NEGATIVE); URINE PROTEIN(semi-quant) TRACE (NEGATIVE); URINE UROBILINOGEN NORMAL (NORMAL)
[2021-03-30 11:39] LABS: BASO # 0.04 K/mm3 (0.02-0.10); EOS # 0.11 K/mm3 (0.04-0.40); EOS % 0.9 % (1.0-5.0); HEMATOCRIT 43.4 % (37.0-47.0); HEMOGLOBIN 13.8 g/dL (12.5-16.0); LYMPH# 1.25 K/mm3 (1.50-4.00); MEAN CELL VOLUME 107 fl (78-100); MEAN CORPUSCULAR HEMOGLOBIN 34 pg (27-31); MEAN CORPUSCULAR HGB CONC 32 g/dL (33-37); MEAN PLATELET VOLUME 10.9 fl (7.4-10.4); MONO # 0.82 K/mm3 (0.20-0.80); NEU # 9.46 K/mm3 (1.40-6.50); PLATELET COUNT 249 K/mm3 (130-400); RED BLOOD COUNT 4.06 M/mm3 (4.10-5.30); RED CELL DISTRIBUTION WIDTH 14.2 % (11.5-14.5); WHITE BLOOD COUNT 11.7 K/mm3 (4.8-10.8)
== END ==
LOC: LAB 10:22
DX: Z79.899 Other long term (current) drug therapy (principal)

== ENCOUNTER → 2021-04-28 | Outpatient (CLI) | payer MEDICARE, BC ==
[2021-04-28 10:48] LABS: BASO # 0.07 K/mm3 (0.02-0.10); EOS # 0.14 K/mm3 (0.04-0.40); EOS % 1.8 % (1.0-5.0); HEMATOCRIT 41.4 % (37.0-47.0); HEMOGLOBIN 13.8 g/dL (12.5-16.0); LYMPH# 0.89 K/mm3 (1.50-4.00); MEAN CELL VOLUME 105 fl (78-100); MEAN CORPUSCULAR HEMOGLOBIN 35 pg (27-31); MEAN CORPUSCULAR HGB CONC 33 g/dL (33-37); MEAN PLATELET VOLUME 9.3 fl (7.4-10.4); NEU # 5.66 K/mm3 (1.40-6.50); PLATELET COUNT 300 K/mm3 (130-400); RED BLOOD COUNT 3.96 M/mm3 (4.10-5.30); RED CELL DISTRIBUTION WIDTH 14.4 % (11.5-14.5); WHITE BLOOD COUNT 7.7 K/mm3 (4.8-10.8)
[2021-04-28 10:53] LABS: ALBUMIN 4.2 g/dL (3.4-4.8); POTASSIUM 3.6 mmol/L (3.5-5.1)
[2021-04-28 10:54] LABS: CALCIUM 9.9 mg/dL (8.3-10.5)
[2021-04-28 10:56] LABS: TOTAL PROTEIN 6.9 g/dL (6.2-8.1)
[2021-04-28 10:57] LABS: TOTAL BILIRUBIN 0.4 mg/dL (0.2-1.2)
[2021-04-28 13:02] LABS: URINE APPEARANCE CLOUDY; URINE BILIRUBIN NEGATIVE (NEGATIVE); URINE BLOOD 50 ery/uL (NEGATIVE); URINE COLOR YELLOW; URINE GLUCOSE NEGATIVE (NEGATIVE); URINE KETONE NEGATIVE (NEGATIVE); URINE LEUKOCYTE ESTERASE 2+ (NEGATIVE); URINE NITRATE POSITIVE (NEGATIVE); URINE PROTEIN(semi-quant) 1+ (NEGATIVE); URINE UROBILINOGEN NORMAL (NORMAL)
[2021-04-28 13:03] LABS: URINE WBC >50 /hpf (0-3)
== END ==
LOC: LAB 09:59
PROVIDERS: Family Medicine
DX: N39.0 Urinary tract infection, site not specified (principal); Z79.899 Other long term (current) drug therapy

== ENCOUNTER → 2021-05-18 | Outpatient (CLI) | payer MEDICARE, BC ==
[2021-05-18 10:53] LABS: BASO # 0.03 K/mm3 (0.02-0.10); EOS # 0.07 K/mm3 (0.04-0.40); HEMATOCRIT 40.8 % (37.0-47.0); HEMOGLOBIN 13.3 g/dL (12.5-16.0); LYMPH# 0.77 K/mm3 (1.50-4.00); MEAN CELL VOLUME 105 fl (78-100); MEAN CORPUSCULAR HEMOGLOBIN 34 pg (27-31); MEAN CORPUSCULAR HGB CONC 33 g/dL (33-37); MEAN PLATELET VOLUME 9.5 fl (7.4-10.4); NEU # 5.43 K/mm3 (1.40-6.50); PLATELET COUNT 278 K/mm3 (130-400); RED BLOOD COUNT 3.87 M/mm3 (4.10-5.30); RED CELL DISTRIBUTION WIDTH 13.9 % (11.5-14.5); WHITE BLOOD COUNT 6.8 K/mm3 (4.8-10.8)
[2021-05-18 10:56] LABS: ALBUMIN 4.1 g/dL (3.4-4.8)
[2021-05-18 10:57] LABS: POTASSIUM 3.9 mmol/L (3.5-5.1)
[2021-05-18 10:58] LABS: CALCIUM 9.9 mg/dL (8.3-10.5)
[2021-05-18 10:59] LABS: TOTAL PROTEIN 6.9 g/dL (6.2-8.1)
[2021-05-18 11:01] LABS: TOTAL BILIRUBIN 0.5 mg/dL (0.2-1.2)
[2021-05-18 14:09] LABS: URINE APPEARANCE CLEAR; URINE BILIRUBIN NEGATIVE (NEGATIVE); URINE BLOOD 50 ery/uL (NEGATIVE); URINE COLOR YELLOW; URINE GLUCOSE NEGATIVE (NEGATIVE); URINE KETONE NEGATIVE (NEGATIVE); URINE LEUKOCYTE ESTERASE TRACE (NEGATIVE); URINE NITRATE NEGATIVE (NEGATIVE); URINE PROTEIN(semi-quant) TRACE (NEGATIVE); URINE UROBILINOGEN NORMAL (NORMAL)
[2021-05-18 14:10] LABS: URINE MUCUS PRESENT (NOT PRESENT)
== END ==
LOC: LAB 10:19
PROVIDERS: Family Medicine
DX: I10 Essential (primary) hypertension (principal); I26.99 Other pulmonary embolism without acute cor pulmonale; I48.0 Paroxysmal atrial fibrillation; N39.0 Urinary tract infection, site not specified

== ENCOUNTER → 2021-07-22 | Outpatient (CLI) | payer MEDICARE, BC ==
[2021-07-22 15:26] LABS: ALBUMIN 4.2 g/dL (3.4-4.8); BASO # 0.01 K/mm3 (0.02-0.10); EOS # 0.01 K/mm3 (0.04-0.40); EOS % 0.1 % (1.0-5.0); HEMATOCRIT 40.4 % (37.0-47.0); HEMOGLOBIN 13.1 g/dL (12.5-16.0); LYMPH# 0.97 K/mm3 (1.50-4.00); MEAN CELL VOLUME 103 fl (78-100); MEAN CORPUSCULAR HEMOGLOBIN 33 pg (27-31); MEAN CORPUSCULAR HGB CONC 32 g/dL (33-37); MEAN PLATELET VOLUME 9.7 fl (7.4-10.4); MONO # 0.46 K/mm3 (0.20-0.80); NEU # 6.65 K/mm3 (1.40-6.50); PLATELET COUNT 259 K/mm3 (130-400); RED BLOOD COUNT 3.93 M/mm3 (4.10-5.30); RED CELL DISTRIBUTION WIDTH 12.9 % (11.5-14.5); WHITE BLOOD COUNT 8.1 K/mm3 (4.8-10.8)
[2021-07-22 15:29] LABS: TOTAL PROTEIN 6.8 g/dL (6.2-8.1)
[2021-07-22 15:30] LABS: TOTAL BILIRUBIN 0.5 mg/dL (0.2-1.2)
== END ==
LOC: LAB 14:45
DX: Z79.899 Other long term (current) drug therapy (principal)

== ENCOUNTER → 2021-07-27 | Outpatient (CLI) | payer MEDICARE, BC ==
[2021-07-27 11:25] LABS: URINE APPEARANCE CLOUDY; URINE COLOR YELLOW; URINE PROTEIN(semi-quant) NEGATIVE (NEGATIVE)
[2021-07-27 11:26] LABS: URINE BILIRUBIN NEGATIVE (NEGATIVE); URINE BLOOD 50 ery/uL (NEGATIVE); URINE GLUCOSE NEGATIVE (NEGATIVE); URINE KETONE NEGATIVE (NEGATIVE); URINE LEUKOCYTE ESTERASE 2+ (NEGATIVE); URINE NITRATE POSITIVE (NEGATIVE); URINE UROBILINOGEN NORMAL (NORMAL); URINE WBC >50 /hpf (0-3)
== END ==
LOC: LAB 10:04
PROVIDERS: Family Medicine
DX: N39.0 Urinary tract infection, site not specified (principal)

== ENCOUNTER → 2021-08-11 | Outpatient (CLI) | payer MEDICARE, BC ==
[2021-08-11 11:38] LABS: PH-URINE 6.5 (5.0 - 8.0); URINE APPEARANCE CLEAR; URINE BILIRUBIN NEGATIVE (NEGATIVE); URINE BLOOD NEGATIVE (NEGATIVE); URINE COLOR YELLOW; URINE GLUCOSE NEGATIVE (NEGATIVE); URINE KETONE NEGATIVE (NEGATIVE); URINE LEUKOCYTE ESTERASE NEGATIVE (NEGATIVE); URINE NITRATE NEGATIVE (NEGATIVE); URINE PROTEIN(semi-quant) TRACE (NEGATIVE); URINE UROBILINOGEN NORMAL (NORMAL)
[2021-08-11 11:39] LABS: URINE WBC 0-1 /hpf (0-3)
== END ==
LOC: LAB 10:19
PROVIDERS: Family Medicine
DX: N39.0 Urinary tract infection, site not specified (principal); N30.91 Cystitis, unspecified with hematuria; T81.49XA Infection following a procedure, other surgical site, initial encounter; G14 Postpolio syndrome

== ENCOUNTER → 2021-08-26 | Outpatient (CLI) | payer MEDICARE, BC ==
[2021-08-26 09:28] LABS: BASO # 0.03 K/mm3 (0.02-0.10); EOS # 0.04 K/mm3 (0.04-0.40); EOS % 0.7 % (1.0-5.0); HEMATOCRIT 39.3 % (37.0-47.0); MEAN CELL VOLUME 100 fl (78-100); MEAN CORPUSCULAR HEMOGLOBIN 33 pg (27-31); MEAN CORPUSCULAR HGB CONC 33 g/dL (33-37); MEAN PLATELET VOLUME 9.7 fl (7.4-10.4); MONO # 0.52 K/mm3 (0.20-0.80); NEU # 4.63 K/mm3 (1.40-6.50); PLATELET COUNT 231 K/mm3 (130-400); RED BLOOD COUNT 3.95 M/mm3 (4.10-5.30); WHITE BLOOD COUNT 6.1 K/mm3 (4.8-10.8)
[2021-08-26 09:38] LABS: ALBUMIN 3.9 g/dL (3.4-4.8); POTASSIUM 3.5 mmol/L (3.5-5.1)
[2021-08-26 09:40] LABS: CALCIUM 9.4 mg/dL (8.3-10.5)
[2021-08-26 09:41] LABS: TOTAL PROTEIN 6.3 g/dL (6.2-8.1)
[2021-08-26 09:43] LABS: TOTAL BILIRUBIN 0.6 mg/dL (0.2-1.2)
== END ==
LOC: LAB 09:12
DX: Z79.899 Other long term (current) drug therapy (principal)

== ENCOUNTER → 2022-01-20 | Outpatient (CLI) | payer MEDICARE, BC, MEDICAID ==
[~2022-01-20] VITALS: Ht 167.6 cm; Wt 108.4 kg
[~2022-01-20] MED LIST changes: +CEFDINIR300 MG PO; +HYGROTON 2525 MG/TAB PO; +PANTOPRAZOLE SO20 M1 PO; +PREDNISONE1 MG PO; +XARELTO20 MG PO
[2022-01-20 11:22] LABS: BASO # 0.02 K/mm3 (0.02-0.10); EOS # 0.06 K/mm3 (0.04-0.40); EOS % 0.8 % (1.0-5.0); HEMOGLOBIN 13.6 g/dL (12.5-16.0); LYMPH# 1.15 K/mm3 (1.50-4.00); MEAN CELL VOLUME 101 fl (78-100); MEAN CORPUSCULAR HEMOGLOBIN 33 pg (27-31); MEAN CORPUSCULAR HGB CONC 32 g/dL (33-37); MEAN PLATELET VOLUME 10.5 fl (7.4-10.4); MONO # 0.47 K/mm3 (0.20-0.80); NEU # 5.38 K/mm3 (1.40-6.50); PLATELET COUNT 299 K/mm3 (130-400); RED BLOOD COUNT 4.15 M/mm3 (4.10-5.30); RED CELL DISTRIBUTION WIDTH 12.7 % (11.5-14.5); WHITE BLOOD COUNT 7.1 K/mm3 (4.8-10.8)
[2022-01-20 11:31] LABS: ALBUMIN 4.3 g/dL (3.4-4.8); POTASSIUM 3.3 mmol/L (3.5-5.1)
[2022-01-20 11:32] LABS: CALCIUM 9.8 mg/dL (8.3-10.5)
[2022-01-20 11:33] LABS: TOTAL PROTEIN 7.4 g/dL (6.2-8.1)
[2022-01-20 11:35] LABS: TOTAL BILIRUBIN 0.6 mg/dL (0.2-1.2)
[2022-01-20 11:54] VITALS: BP 122/86
[2022-01-20 12:12] VITALS: BP 153/91
[2022-01-20 12:33] LABS: ERYTHROCYTE SEDIMENTATION RATE 15 mm/hr (0-30)
[2022-01-20 13:10] LABS: URINE APPEARANCE HAZY; URINE BILIRUBIN NEGATIVE (NEGATIVE); URINE BLOOD 250 ery/uL (NEGATIVE); URINE COLOR YELLOW; URINE GLUCOSE NEGATIVE (NEGATIVE); URINE KETONE NEGATIVE (NEGATIVE); URINE LEUKOCYTE ESTERASE 2+ (NEGATIVE); URINE NITRATE POSITIVE (NEGATIVE); URINE PROTEIN(semi-quant) 1+ (NEGATIVE); URINE UROBILINOGEN NORMAL (NORMAL)
[2022-01-20 13:11] LABS: URINE MUCUS PRESENT (NOT PRESENT); URINE WBC >50 /hpf (0-3)
== END ==
LOC: AMSURD 10:20 → LAB 10:20
PROVIDERS: Family Medicine
DX: R19.7 Diarrhea, unspecified (principal); E87.6 Hypokalemia
CPT/HCPCS: J7030

== ENCOUNTER → 2023-04-29 | Outpatient (CLI) | payer MEDICARE, MEDICAID ==
[~2023-04-29] MED LIST changes: +CEPHALEXIN500 M2 PO; +MORGIDOX 1X100100 MG PO; +POTASSIUM CHLO20 ME4 PO; +PREDNISONE20 MG PO
[2023-04-29 14:10] LABS: CALCIUM 9.3 mg/dL (8.3-10.5)
== END ==
LOC: LAB 13:31
PROVIDERS: Family Medicine
DX: I10 Essential (primary) hypertension (principal)

== ENCOUNTER → 2023-08-01 | Outpatient (CLI) | payer MEDICARE, MEDICAID ==
[2023-08-01 09:57] LABS: CALCIUM 10.2 mg/dL (8.3-10.5)
[2023-08-01 10:11] LABS: PH-URINE 5.5 (5.0 - 8.0); URINE APPEARANCE SLIGHTLY CLOUDY (CLEAR); URINE BILIRUBIN NEGATIVE (NEGATIVE); URINE COLOR YELLOW (YELLOW); URINE GLUCOSE NEGATIVE (NEGATIVE); URINE KETONE NEGATIVE (NEGATIVE); URINE NITRATE POSITIVE (NEGATIVE); URINE PROTEIN(semi-quant) NEGATIVE (NEGATIVE)
[2023-08-01 10:12] LABS: URINE BLOOD 1+ (NEGATIVE); URINE LEUKOCYTE ESTERASE 3+ (NEGATIVE); URINE WBC >50 /hpf (0-3)
== END ==
LOC: LAB 09:35
PROVIDERS: Family Medicine
DX: I10 Essential (primary) hypertension (principal); E78.2 Mixed hyperlipidemia; N30.10 Interstitial cystitis (chronic) without hematuria

== ENCOUNTER → 2024-01-09 | Outpatient (CLI) | payer MEDICARE, MEDICAID ==
[2024-01-09 11:08] LABS: BASO # 0.01 K/mm3 (0.02-0.10); EOS # 0.07 K/mm3 (0.04-0.40); EOS % 1.2 % (1.0-5.0); HEMATOCRIT 39.6 % (37.0-47.0); HEMOGLOBIN 13.2 g/dL (12.5-16.0); LYMPH# 1.36 K/mm3 (1.50-4.00); MEAN CELL VOLUME 101 fl (78-100); MEAN CORPUSCULAR HEMOGLOBIN 34 pg (27-31); MEAN CORPUSCULAR HGB CONC 33 g/dL (33-37); MEAN PLATELET VOLUME 9.4 fl (7.4-10.4); NEU # 3.84 K/mm3 (1.40-6.50); PLATELET COUNT 277 K/mm3 (130-400); RED BLOOD COUNT 3.91 M/mm3 (4.10-5.30); RED CELL DISTRIBUTION WIDTH 12.8 % (11.5-14.5); WHITE BLOOD COUNT 5.9 K/mm3 (4.8-10.8)
[2024-01-09 11:25] LABS: ALBUMIN 4.2 g/dL (3.4-4.8)
[2024-01-09 11:26] LABS: CALCIUM 10.2 mg/dL (8.3-10.5)
[2024-01-09 11:27] LABS: TOTAL PROTEIN 6.7 g/dL (6.2-8.1)
[2024-01-09 11:29] LABS: TOTAL BILIRUBIN 0.6 mg/dL (0.2-1.2)
[2024-01-09 11:52] LABS: URINE APPEARANCE SLIGHTLY CLOUDY (CLEAR); URINE BILIRUBIN NEGATIVE (NEGATIVE); URINE BLOOD TRACE (NEGATIVE); URINE COLOR YELLOW (YELLOW); URINE GLUCOSE NEGATIVE (NEGATIVE); URINE KETONE NEGATIVE (NEGATIVE); URINE LEUKOCYTE ESTERASE 3+ (NEGATIVE); URINE MUCUS PRESENT (NOT PRESENT); URINE NITRATE POSITIVE (NEGATIVE); URINE PROTEIN(semi-quant) TRACE (NEGATIVE); URINE WBC 31-50 /hpf (0-3)
== END ==
LOC: LAB 10:39
PROVIDERS: Family Medicine
DX: I10 Essential (primary) hypertension (principal); I95.9 Hypotension, unspecified

== ENCOUNTER → 2024-04-30 | Outpatient (CLI) | payer MEDICARE, MEDICAID ==
[~2024-04-30] MED LIST changes: +FEXOFENADINE H180 M1 PO; +FIBERCON625 M1 PO; +ISOSORBIDE30 MG PO; +LEVOTHYROXINE112 MC1 PO; +LINZESS72 MCG PO; +ZYRTEC ALLERGY10 MG PO
[2024-04-30 14:22] LABS: CALCIUM 9.7 mg/dL (8.3-10.5)
== END ==
LOC: LAB 14:00
PROVIDERS: Family Medicine
DX: I10 Essential (primary) hypertension (principal)